=== PATIENT | female | born 1960 | race Caucasian/White ===

== ENCOUNTER → 2018-02-19 18:07 | Outpatient (CLI) | payer OTHER | END | disposition home or self-care (01) | LOC: D.MAMMO 02-14 15:30 | DX: Z12.31 Encounter for screening mammogram for malignant neoplasm of breast (principal) ==

== ENCOUNTER → 2020-07-05 09:59 | Outpatient (CLI) | payer MEDICARE | END | disposition home or self-care (01) | LOC: D.CT 09:59 | PROVIDERS: ATTEND Family Medicine | DX: R31.9 Hematuria, unspecified (principal) ==

== ENCOUNTER 2020-08-03 10:15 | Outpatient (CLI) | payer MEDICARE | END 2020-08-03 23:59 | disposition home or self-care (01) | LOC: D.MAMMO 10:15 | PROVIDERS: ATTEND Family Medicine | DX: Z12.31 Encounter for screening mammogram for malignant neoplasm of breast (principal) ==